=== PATIENT | male | born 1950 | race African-American/Black ===

== ENCOUNTER → 2016-10-01 16:54 | Emergency (ER) | payer OTHER ==
[~2016-10-01] VITALS: Ht 177.8 cm; Wt 95.3 kg
[~2016-10-01 16:54] MED LIST: ADVIL,NUPRIN,M200 MG PO; ASPIR-LOW81 MG PO; ATORVASTATIN CA40 MG PO; CENTRUM SILVER1 EAC3 PO; FLEXERIL5 MG PO; IBUPROFEN200 M1 PO; LO-DOSE ASPIRIN81 M1 PO; MEDROL DOSEPAK4 MG PO; MOBIC7.5 MG PO; MOTRIN600 MG PO; NAPROSYN500 MG PO; NORCO 5/3251 TABLET PO; ONE DAILY TABL1 EAC1 PO; PHENERGAN-CODE120 ML PO; PRAVASTATIN SOD40 MG PO; PROAIR RESPICL90 MCG IH; TRAMADOL HCL50 MG PO; TYLENOL REGULA325 MG PO; ULTRAM50 MG PO; VALIUM5 MG PO
[2016-10-01 17:07] VITALS: BP 123/83
== END | disposition left against medical advice (07) ==
LOC: EME 16:54
DX: G47.9 Sleep disorder, unspecified (principal); R51 Headache; Z53.21 Procedure and treatment not carried out due to patient leaving prior to being seen by health care provider

== ENCOUNTER 2016-10-02 09:11 | Emergency (ER) | payer OTHER ==
[~2016-10-02] VITALS: Ht 177.8 cm; Wt 94.0 kg
[2016-10-02 10:18] LABS: ADD MIUA? NO; BILIRUBIN NEGATIVE; BLOOD NEGATIVE; COLOR STRAW ((YELLOW)); GLUCOSE (STRIP) NEGATIVE; KETONES NEGATIVE; LEUKOCYTES NEGATIVE; NITRITE NEGATIVE; PROTEIN (STRIP) NEGATIVE; SPECIFIC GRAVITY 1.011 (1.000-1.030); UROBILINOGEN 0.2 MG/DL (0.2-1.0)
[2016-10-02 10:24] LABS: BASOPHIL COUNT 0.1 K/uL (0-0.1); EOSINOPHIL (%) 4.1 % (0-5); EOSINOPHIL COUNT 0.2 K/uL (0-0.3); HEMATOCRIT 42.1 % (38.0-50.0); IMMATURE GRANULOCYTE (%) 0.2 % (0.0-0.7); INSTRUMENT ABS NEUTROPHIL CT 1.5 K/uL; LYMPHOCYTE COUNT 2.2 K/uL (1.0-2.8); MCH 28.4 PG (29.0-34.0); MCHC 33.3 G/DL (30.0-36.0); MCV 85.4 FL (86-99); MONOCYTE (%) 9.9 % (3-12); MONOCYTE COUNT 0.4 K/uL (0-0.8); NEUTROPHIL (%) 34.6 % (45-76); NEUTROPHIL COUNT 1.5 K/uL (1.8-6.4); PLATELET COUNT 186 K/uL (156-360); RBC DIS.WIDTH-CV 12.6 % (11.8-14.6); RED BLOOD COUNT 4.93 M/uL (4.00-5.50); WHITE BLOOD COUNT 4.4 K/uL (4.1-10.2)
[2016-10-02 10:34] LABS: CHLORIDE 108 mEq/L (99-109); SODIUM 141 mEq/L (136-147)
[2016-10-02 10:36] LABS: GLUCOSE 93 mg/dL (70-99)
[2016-10-02 10:37] LABS: ANION GAP 9 MEQ/L (2-14)
[2016-10-02 10:39] LABS: SERUM ETHYL ALCOHOL < 10 mg/dL
[2016-10-02 10:40] LABS: GFR ESTIMATE (CALCULATED) > 59 mL/min/
[2016-10-02 10:41] LABS: UREA NITROGEN (BUN) 11 mg/dL (9-23)
[2016-10-02 10:47] LABS: AMPHETAMINE NEGATIVE (500 ng/mL); BARBITURATES NEGATIVE (200 ng/mL); BENZODIAZEPINES NEGATIVE (150 ng/mL); COCAINE NEGATIVE (150 ng/mL); INTERNAL CONTROLS VALID? YES; METHADONE NEGATIVE (200 ng/mL); METHAMPHETAMINE NEGATIVE (500 ng/mL); OPIATES (MORPHINE) NEGATIVE (100 ng/mL); OXYCODONE NEGATIVE (100 ng/mL); PHENCYCLIDINE NEGATIVE (25 ng/mL); PROPOXYPHENE NEGATIVE (300 ng/mL); THC CANNABINOIDS NEGATIVE (50 ng/mL); TRICYCLIC ANTIDEPRESSANTS NEGATIVE (300 ng/mL)
[2016-10-02 12:39] VITALS: BP 131/93
== END 2016-10-02 12:45 | disposition home or self-care (01) ==
LOC: EME 09:11
PROVIDERS: Emergency Medicine
DX: F41.1 Generalized anxiety disorder (principal)
CPT/HCPCS: 80048; 81003; 85025; 90839; 99281; 99283; G0480